=== PATIENT | male | born 1970 | race Caucasian/White ===

== ENCOUNTER 2022-04-07 08:14 | Emergency (ER) | payer MEDICAID ==
[~2022-04-07] VITALS: Ht 175.3 cm; Wt 70.5 kg
[2022-04-07] MEDS ORDERED: ZIPRASIDONE MESYLATE 20MG/VIAL IM ONE (09:00)
[2022-04-07] MEDS ORDERED: SODIUM CHLORIDE 0.9% 1,000 ML IV ONE (09:00)
[2022-04-07 09:18] LABS: BASOPHILS % 0.4 % (0.0-2.0); EOSINOPHILS % 0.1 % (0.0-5.0); HEMATOCRIT. 46.9 % (42.0-52.0); HEMOGLOBIN. 16.1 g/dL (14.0-18.0); LYMPHOCYTES % 11.2 % (20.0-50.0); MEAN CORPUSCULAR VOLUME 92.9 fL (80.0-94.0); MEAN PLATELET VOLUME 7.9 fl (7.4-10.4); MONOCYTES % 3.8 % (2.0-8.0); NEUTROPHILS % 84.5 % (40.0-76.0); PLATELET 257 x1000/uL (130-400); RED BLOOD CELL COUNT 5.05 mill/uL (4.7-6.1); RED CELL DISTRIBUTION WIDTH 13.6 % (11.6-14.6)
[2022-04-07 09:52] LABS: CHLORIDE 105 mEq/L (98-107)
[2022-04-07 10:04] LABS: ETHANOL BLOOD 69 mg/dL
[2022-04-07 13:38] VITALS: BP 170/112
== END 2022-04-07 16:24 | disposition home or self-care (01) ==
LOC: ER 08:14
DX: F15.10 Other stimulant abuse, uncomplicated (principal)
CPT/HCPCS: 36415; 80048; 80320; 85025; 96360; 96372; 99283; J3486; J7030; Z7610; G0480

== ENCOUNTER 2023-07-07 03:16 | Emergency (ER) | payer OTHER, MEDICAID ==
[~2023-07-07] VITALS: Ht 175.3 cm; Wt 82.0 kg
[2023-07-07 03:22] VITALS: O2SAT 100
[2023-07-07 04:00] VITALS: BP 108/70; PULSE 96; RESP 20; TEMP 98.6
== END 2023-07-07 04:35 ==
LOC: ER 04:31
DX: S01.112A Laceration without foreign body of left eyelid and periocular area, initial encounter (principal); G89.29 Other chronic pain; M25.561 Pain in right knee; F15.90 Other stimulant use, unspecified, uncomplicated; X58.XXXA Exposure to other specified factors, initial encounter; Y93.89 Activity, other specified; Y92.89 Other specified places as the place of occurrence of the external cause; Y99.8 Other external cause status
CPT/HCPCS: 99283